=== PATIENT | male | born 1960 | race Caucasian/White ===

== ENCOUNTER 2020-03-19 15:26 | Observation (INO) ==
[2020-03-19] MEDS ORDERED: 0.9 % Sodium Chloride 1,000 ML IVC ONE (15:59)
[2020-03-19 16:30] LABS: INR 1.1; Prothrombin Time 12.4 Seconds (9.4-12.1)
[2020-03-19 16:34] LABS: Mean Platelet Volume 9.9 fL (9.4-12.4)
[2020-03-19 16:36] LABS: Basophils % 0.4 %; Eosinophils # 0.1 K/mcL (0.0-0.6); Hematocrit 21.4 % (37.5-50.1); Lymphocytes # 1.7 K/mcL (0.6-4.6); Lymphocytes % 24.6 %; Mean Corpuscular HGB Conc 26.6 g/dL (31.6-35.5); Mean Corpuscular Hemoglobin 17.2 pg (28.0-33.3); Mean Corpuscular Volume 64.7 fL (83.0-100.0); Monocytes # 0.5 K/mcL (0.0-1.3); Monocytes % 6.9 %; Neutrophils # 4.5 K/mcL (1.6-8.9); Platelet Count 204 K/mcL (140-400); Red Blood Count 3.31 M/mcL (4.19-5.50); Red Cell Distribution Width 19.5 % (11.5-14.5); Segmented Neutrophils % 66.1 %; White Blood Count 6.8 K/mcL (4.3-11.1)
[2020-03-19 16:39] LABS: Alanine Aminotransferase 18 Units/L (7-52); Albumin 4.4 g/dL (3.5-5.7); Albumin/Globulin Ratio 1.8 (1.1-2.2); Alkaline Phosphatase 70 Units/L (34-104); Aspartate Amino Transferase 20 Units/L (13-39); BUN/Creatinine Ratio 9 (6-26); Bilirubin,Total 0.5 mg/dL (0.3-1.0); Blood Urea Nitrogen 7 mg/dL (6-20); Calcium 9.1 mg/dL (8.6-10.3); Carbon Dioxide 21 mEq/L (23-29); Chloride 95 mEq/L (98-107); Globulin 2.4 g/dL (2.4-3.5); Glucose 100 mg/dL (70-105); Magnesium 1.9 mg/dL (1.6-2.6); Osmolality,Calculated 262 (280-300); Potassium 3.7 mEq/L (3.5-5.1); Sodium 127 mEq/L (136-145); Total Protein 6.8 g/dL (6.4-8.9); Troponin I < 0.03 ng/mL (< 0.04); eGFR For African Americans > 60 (> 60); eGFR For Non-African Americans > 60 (> 60)
[2020-03-19 16:50] LABS: Hemoglobin 5.7 g/dL (12.9-16.9)
[2020-03-19] MEDS ORDERED: Pantoprazole 40 MG VIAL IVP ONE (16:58)
[2020-03-19 17:06] LABS: Hypochromasia Present (Not Present); Microcytosis Present (Not Present); Ovalocytes 1+ (Not Present); Poikilocytosis 1+ (Not Present); Polychromasia 1+ (Not Present)
[2020-03-19 17:07] LABS: Platelet Estimate Normal (Normal); Stomatocytes 1+ (Not Present); Tear Drop Cells 1+ (Not Present)
[2020-03-19 18:07] LABS: Adenovirus Not Detected (Not Detect); Coronavirus 229E Not Detected (Not Detect); Coronavirus HKU1 Not Detected (Not Detect); Coronavirus NL63 Not Detected (Not Detect); Coronavirus OC43 Not Detected (Not Detect)
[2020-03-19 18:08] LABS: Bordetella Pertussis Not Detected (Not Detect); Chlamydophila pneumoniae Not Detected (Not Detect); Human Metapneumovirus Not Detected (Not Detect); Human Rhinovirus/Enterovirus Not Detected (Not Detect); Influenza A Subtype 2009 H1 Not Detected (Not Detect); Influenza B Not Detected (Not Detect); Mycoplasma pneumoniae Not Detected (Not Detect); Parainfluenza Virus 1 Not Detected (Not Detect); Parainfluenza Virus 2 Not Detected (Not Detect); Parainfluenza Virus 3 Not Detected (Not Detect); Parainfluenza Virus 4 Not Detected (Not Detect); Respiratory Syncytial Virus Not Detected (Not Detect); SARS-CoV-2 Not Detected (Not Detect)
[2020-03-19] MEDS ORDERED: Acetaminophen 325 MG TABLET PO PRN (18:08)
[2020-03-19] MEDS ORDERED: Naloxone 0.4 MG/ML INJ IVP PRN (18:08)
[2020-03-19] MEDS ORDERED: Ondansetron ODT 4 MG TAB.RAPDIS SL PRN (18:08)
[2020-03-19] MEDS ORDERED: *HR* LORazepam 2 MG/ML VIAL IVP PRN ×3 (18:10)
[2020-03-19] MEDS ORDERED: 0.9 % Sodium Chloride 250 ML ONE (20:36)
[2020-03-20] MEDS ORDERED: 0.9 % Sodium Chloride 250 ML ONE (00:15)
[2020-03-20 00:33] LABS: Bilirubin,Urine Negative (Negative); Blood,Urine Negative (Negative); Clarity,Urine Clear (Clear); Color,Urine Colorless (Yellow); Glucose,Urine (UA) Normal (Normal); Ketones,Urine Negative (Negative); Leukocyte Esterase,Urine Negative (Negative); Nitrite,Urine Negative (Negative); PH,Urine 6.5 pH Units (5.0-8.0); Protein,Urine Negative (Neg-Trace); Specific Gravity,Urine < 1.005 (1.010-1.025); Urobilinogen,Urine Normal (Normal)
[2020-03-20] MEDS: Pantoprazole 40 MG VIAL IVP SCH ×2 (05:45→17:10)
[2020-03-20] MEDS: Vitamin B Complex/Vit C/Vit E 1 EACH TABLET PO SCH (08:04)
[2020-03-20] MEDS: Folic Acid 1 MG TABLET PO SCH (08:04)
[2020-03-20] MEDS ORDERED: SODIUM CHLORIDE/NAHCO3/KCL/PEG 4,000 ML SOLN.RECON PO ONE (09:45)
[2020-03-20 10:28] LABS: Basophils % 0.3 %; Eosinophils % 0.6 %; Hematocrit 29.5 % (37.5-50.1); Immature Granulocytes % 0.7 % (0-4); Lymphocytes # 0.9 K/mcL (0.6-4.6); Mean Corpuscular HGB Conc 28.8 g/dL (31.6-35.5); Mean Corpuscular Hemoglobin 19.7 pg (28.0-33.3); Mean Corpuscular Volume 68.4 fL (83.0-100.0); Monocytes # 0.6 K/mcL (0.0-1.3); Monocytes % 7.6 %; Neutrophils # 5.7 K/mcL (1.6-8.9); Nucleated Red Blood Cells 0.3 /100 WBC (0); Platelet Count 211 K/mcL (140-400); Red Blood Count 4.31 M/mcL (4.19-5.50); Red Cell Distribution Width 23.8 % (11.5-14.5); Segmented Neutrophils % 78.8 %; White Blood Count 7.2 K/mcL (4.3-11.1)
[2020-03-20 10:29] LABS: Hemoglobin 8.5 g/dL (12.9-16.9)
[2020-03-20 10:44] LABS: Anisocytosis 1+ (Not Present); Hypochromasia Present (Not Present)
[2020-03-20 10:45] LABS: BUN/Creatinine Ratio 9 (6-26); Blood Urea Nitrogen 8 mg/dL (6-20); Calcium 9.4 mg/dL (8.6-10.3); Carbon Dioxide 24 mEq/L (23-29); Chloride 99 mEq/L (98-107); Glucose 135 mg/dL (70-105); Iron 16 mcg/dL (65-175); Microcytosis Present (Not Present); Osmolality,Calculated 272 (280-300); Platelet Estimate Normal (Normal); Sodium 131 mEq/L (136-145); eGFR For African Americans > 60 (> 60); eGFR For Non-African Americans > 60 (> 60)
[2020-03-20 11:06] LABS: % Iron Saturation 3 % (20-55); Transferrin 389 mg/dL (203-362)
[2020-03-20 11:26] LABS: Folate > 22.3 ng/mL (3.0-16.0); Vitamin B12 323 pg/mL (250-1100)
[2020-03-21 04:56] LABS: Hemoglobin 8.9 g/dL (12.9-16.9); Immature Granulocytes % 0.5 % (0-4); Red Cell Distribution Width 23.9 % (11.5-14.5)
[2020-03-21 04:58] LABS: Basophils % 0.5 %; Eosinophils # 0.1 K/mcL (0.0-0.6); Eosinophils % 1.2 %; Lymphocytes % 15.7 %; Mean Corpuscular HGB Conc 28.7 g/dL (31.6-35.5); Mean Corpuscular Volume 69.7 fL (83.0-100.0); Monocytes % 10.6 %; Platelet Count 191 K/mcL (140-400); Red Blood Count 4.45 M/mcL (4.19-5.50); Segmented Neutrophils % 71.5 %; White Blood Count 6.1 K/mcL (4.3-11.1)
[2020-03-21 05:00] LABS: Monocytes # 0.7 K/mcL (0.0-1.3); Neutrophils # 4.4 K/mcL (1.6-8.9)
[2020-03-21 05:14] LABS: BUN/Creatinine Ratio 9 (6-26); Blood Urea Nitrogen 7 mg/dL (6-20); Calcium 9.1 mg/dL (8.6-10.3); Carbon Dioxide 24 mEq/L (23-29); Chloride 101 mEq/L (98-107); Glucose 136 mg/dL (70-105); Osmolality,Calculated 276 (280-300); Potassium 3.7 mEq/L (3.5-5.1); Sodium 133 mEq/L (136-145); eGFR For African Americans > 60 (> 60); eGFR For Non-African Americans > 60 (> 60)
[2020-03-21 05:29] LABS: Anisocytosis 2+ (Not Present); Hypochromasia Present (Not Present); Microcytosis Present (Not Present); Poikilocytosis 1+ (Not Present)
[2020-03-21 05:30] LABS: Platelet Estimate Normal (Normal)
[2020-03-21] MEDS: Pantoprazole 40 MG VIAL IVP SCH (05:33)
[2020-03-21] MEDS: Folic Acid 1 MG TABLET PO SCH (08:06)
[2020-03-21] MEDS: Vitamin B Complex/Vit C/Vit E 1 EACH TABLET PO SCH (08:06)
[2020-03-21] MEDS ORDERED: Lidocaine -MPF 2% 2 ML VIAL ONE (12:15)
[2020-03-21] MEDS ORDERED: *HR* Propofol 200 MG/20 ML VIAL IVP ONE ×2 (12:15→13:20)
[2020-03-21 14:25] VITALS: BP 148/79
[2020-03-21] MEDS ORDERED: Iron Sucrose Complex 200 MG in 0.9 % Sodium Chloride 100 ML IVPB ONE (14:44)
== END 2020-03-21 18:15 | disposition home or self-care (01) ==
LOC: EMEROOARM 15:26 → 3ANU 15:26 → SUATTDRO 18:36 → 3ANU 20:04
PROVIDERS: ADMIT Internal Medicine; ATTEND Internal Medicine
PROC: ENDOCCB (2020-03-21 14:00)